=== PATIENT | female | born 1980 | race Caucasian/White ===

== ENCOUNTER 2019-08-30 05:35 | Day surgery (SDC) | payer OTHER ==
[2019-08-30] VITALS (11 sets, daily range): BP systolic 89–129; BP diastolic 60–78; PULSE 58–76; TEMP 97.4–98.1
[~2019-08-30] VITALS: Ht 160 cm; Wt 55.8 kg
[~2019-08-30 05:35] MED LIST: FERROUS SU325 MG/TAB PO; LORTAB 5/500 501 TAB; PRENATAL VITAMI1 TA5 PO
[2019-08-30] MEDS ORDERED: TYLENOL 500MG500 MG PO ×2 (06:33→08:59)
[2019-08-30] MEDS ORDERED: MULTIPLE VITAMI1 CAP PO (06:34)
--- NOTE | 2019-08-30 06:34 | NUR ---
TO RM 8 AT 0545- CALL LIGHT IN REACH MOTHER TO CUSTOMER ACCOUNT ADMINISTRATOR PATIENT AFTER SURGERY
[2019-08-30] MEDS ORDERED: ROXICODONE 55 MG/TAB PO (08:58)
--- NOTE | 2019-08-30 10:05 | NUR ---
TO RM 8 PER CART FROM PACU. DROWSY, BUT AWAKENS EASILY. DENIES PAIN OR DISCOMFORT. C/O FEELING NAUSEATED. RECEIVED PHENERGAN IN PACU. TEARY EYED ASKING FOR HER "MAMA". I EXPLAINED HER MOTHER WAS IN THE CAR AND WILL BE ABLE TO SEE HER AFTER SHE IS DISCHARGED.
--- NOTE | 2019-08-30 10:20 | NUR ---
PATIENT SLEEPING QUIETLY
--- NOTE | 2019-08-30 10:35 | NUR ---
CONTINUES TO SLEEP QUIETLY.
--- NOTE | 2019-08-30 10:45 | NUR ---
AWAKENS EASILY AND FALLS BACK TO SLEEP AFTER QUESTIONS. REFUSED ANYTHING TO EAT/DRINK. C/O PAIN 5/10 AND CONTINUES TO C/O NAUSEA.
--- NOTE | 2019-08-30 11:02 | NUR ---
RECEIVED NEW WARM BLANKETS
--- NOTE | 2019-08-30 11:03 | NUR ---
SLEEPING QUIETLY AND NO SIGNS OF DISTRESS
--- NOTE | 2019-08-30 11:15 | NUR ---
AWAKENS AND EASILY FALLS BACK TO SLEEP. DENIES ANYTHING TO EAT OR DRINK AND FALLS BACK TO SLEEP.
--- NOTE | 2019-08-30 12:08 | NUR ---
OFFERED PATIENT SOMETHING TO DRINK, NODDED HEAD NO WITH EYES CLOSED. MOTHER CALLED AND UPDATED ON CONDITION.
--- NOTE | 2019-08-30 12:17 | NUR ---
PATIENT SITTING UP AND TAKING SIPS OF WATER AND EATING A CRACKER. HAS EMESIS BAG A BEDSIDE IF NEEDED, C/O OF NAUSEA ON/OFF.
--- NOTE | 2019-08-30 12:25 | NUR ---
MORE AWAKE AND ATE CRACKERS AND TAKING SIPS OF WATER. C/O PAIN 8/10 WORSE ON THE R SIDE. RECEIVED OXYCODONE HCL 5MG PO ORDERED. HANDED PATIENT HER PHONE SO SHE COULD TALK TO HER MOTHER.
--- NOTE | 2019-08-30 12:45 | NUR ---
C/O PAIN ON RIGHT SIDE WHEN SHE STOOD UP TO GO TO BATHROOM. STATED SHE WASN'T NAUSEATED SHE WAS. AMBULATED TO BATHROOM, VOIDED AND AMBULATED BACK TO .
--- NOTE | 2019-08-30 13:00 | NUR ---
RECEIVED DISCHARGE INSTRUCTIONS AND VERBALIZED UNDERSTANDING. DISCONTINUED IV AND INT- CATHETER INTACT. PATIENT GETTING DRESSED AND MOTHER CALLED TO BIN TRIPPER OPERATOR PATIENT
--- NOTE | 2019-08-30 13:24 | NUR ---
DISCHARGED PER WC BY NURSING STAFF TO PRIVATE CAR IN CARE OF MOTHER- RADHA.
== END 2019-08-30 13:26 | disposition home or self-care (01) ==
LOC: SDCO 05:35
DX: K43.6 Other and unspecified ventral hernia with obstruction, without gangrene (principal); J40 Bronchitis, not specified as acute or chronic; F32.9 Major depressive disorder, single episode, unspecified; F41.9 Anxiety disorder, unspecified; F17.210 Nicotine dependence, cigarettes, uncomplicated; Z79.899 Other long term (current) drug therapy; Z88.6 Allergy status to analgesic agent; Z88.1 Allergy status to other antibiotic agents; Z88.2 Allergy status to sulfonamides
CPT/HCPCS: C1781; J1885; J2405; J2550; J2704; J3010; J7042; J7120

== ENCOUNTER → 2019-11-24 | Outpatient (CLI) | payer OTHER ==
[~2019-11-24] MED LIST changes: +MULTIPLE VITAMI1 CAP PO; +ROXICODONE 55 MG/TAB PO; +TYLENOL 500MG500 MG PO
== END ==
LOC: MC.RAD 08:30
DX: N60.02 Solitary cyst of left breast (principal)

== ENCOUNTER 2019-12-10 06:37 | Day surgery (SDC) | payer OTHER ==
[~2019-12-10] VITALS: Ht 160 cm; Wt 58.6 kg
[~2019-12-10 06:37] MED LIST changes: -MULTIPLE VITAMI1 CAP PO; +ONE-A-DAY ESSE1 EACH PO
[2019-12-10] MEDS ORDERED: VENTOLIN0.09 MG IH (07:08)
[2019-12-10] MEDS ORDERED: MIRVASO30 GM TP (07:09)
[2019-12-10 07:25] VITALS: BP 111/81; PULSE 70; TEMP 98.6
[2019-12-10 09:10] VITALS: BP 108/79; PULSE 77; TEMP 97.8
--- NOTE | 2019-12-10 09:10 | NUR ---
Patient back from OR at this time. Patient shivering, warm blanket applied. Patient monitor applied, vitals stable. Patient complains of headache and nausea. Patient's step-dad at bedside. Patient given water, juice and crackers.
--- NOTE | 2019-12-10 09:15 | NUR ---
Left breast dressing has a small amount of drainage noted on the left upper breast area. The outter edges have been marked and timed.
[2019-12-10] MEDS ORDERED: NORCO 325 MG-51 TAB PO (09:18)
[2019-12-10 09:25] VITALS: BP 119/105; PULSE 72
--- NOTE | 2019-12-10 09:30 | NUR ---
Patient tolerating food and drink without any complications.
[2019-12-10 09:40] VITALS: BP 133/115; PULSE 71
--- NOTE | 2019-12-10 09:40 | NUR ---
Orders obtained from Dr Graves at this time, and PRN medications administered. Vitals stable. Patient tolerating food and drink well.
[2019-12-10 09:55] VITALS: BP 101/70; PULSE 69
--- NOTE | 2019-12-10 10:00 | NUR ---
Patient reports that her nausea and pain are getting much better at this time.
--- NOTE | 2019-12-10 10:15 | NUR ---
Dismissal instructions gone over with patient and patient's step-dad. Both verbalize understanding and all questions answered.
--- NOTE | 2019-12-10 10:20 | NUR ---
Patient up to restroom at this time, and is able to urinate without any complications.
--- NOTE | 2019-12-10 10:30 | NUR ---
Patient discharged to private vehicle at patient enterance via wheelchair without any complications. Patient leaves thanking staff for services.
== END 2019-12-10 10:30 | disposition home or self-care (01) ==
LOC: SDCO 06:37
DX: D24.2 Benign neoplasm of left breast (principal); N64.52 Nipple discharge; D64.9 Anemia, unspecified; J45.909 Unspecified asthma, uncomplicated; G43.909 Migraine, unspecified, not intractable, without status migrainosus; F41.1 Generalized anxiety disorder; F32.9 Major depressive disorder, single episode, unspecified; Z88.4 Allergy status to anesthetic agent; Z87.891 Personal history of nicotine dependence; Z88.2 Allergy status to sulfonamides; Z88.8 Allergy status to other drugs, medicaments and biological substances; Z20.828 Contact with and (suspected) exposure to other viral communicable diseases
CPT/HCPCS: J0690; J1100; J1885; J2405; J2704; J3010; J7120